=== PATIENT | male | born 1975 | race Caucasian/White ===

== ENCOUNTER 2019-02-16 17:09 | Emergency (ER) | payer SELFPAY ==
[~2019-02-16] VITALS: Ht 172.7 cm; Wt 79.4 kg
[2019-02-16 17:16] VITALS: BP 167/93
[2019-02-16 17:25] VITALS: BP 167/93
--- NOTE | 2019-02-16 17:30 | NUR ---
C/O RIGHT MIDDLE & RING FINGERS PAIN & SWELLING AND REDNESS. S/P HUMAN BITE X 02/11/19. LAST TDAP 1.5 YEAR AGO. BITE NATALY LOCATION ON LEFT BACK OF SHOULDER AND LEFT WRIST; BOTH SHOWS SCARRING. NO SIGNS OF INFECTION ON BITE [place]. CMS INTACT ON BOTH HANDS. PULSES PRESENT. NKA. ALLERGIES: PENCILLIN MED HX:BIPOLAR
--- NOTE | 2019-02-16 17:30 | NUR ---
OTC MED TOOK 2 NAPROXEN TAKEN 1 AND 1/2 HR AGO. PMH: BIPOLAR AND HIGH CHOLESTEROL.
--- NOTE | 2019-02-16 17:55 | NUR ---
PA AT BEDSIDE
[2019-02-16] MEDS ORDERED: IBUPROFEN 600 MG TAB PO ONE (18:10)
--- NOTE | 2019-02-16 18:16 | NUR ---
XR AT BEDSIDE.
--- NOTE | 2019-03-01 06:22 | NUR ---
Late entry. Confirmed with RN that an aluminum finger splint was use.
== END 2019-02-16 18:58 | disposition home or self-care (01) ==
LOC: MED 17:09
DX: S62.614A Displaced fracture of proximal phalanx of right ring finger, initial encounter for closed fracture (principal); Z88.0 Allergy status to penicillin; Y04.1XXA Assault by human bite, initial encounter; Y93.89 Activity, other specified; Y92.89 Other specified places as the place of occurrence of the external cause; Y99.8 Other external cause status
CPT/HCPCS: 29130; 73130; 99283; Q0092